=== PATIENT | female | born 1965 | race Caucasian/White ===

== ENCOUNTER 2019-06-23 08:28 | Outpatient (CLI) | payer BC, SELFPAY ==
--- NOTE | ~2019-06-23 | MM_ITS ---
EXAMINATION: MM screening [facility] w miguel a HISTORY: Screening mammogram TECHNIQUE: Craniocaudal and mediolateral oblique 3-D tomosynthesis images were obtained and synthetic 2-D images were generated. CAD analysis was submitted and interpreted. COMPARISON: Comparison to multiple prior studies sequentially, with oldest reviewed study dated 01/27. BREAST PARENCHYMAL COMPOSITION: There are scattered areas of fibroglandular density. FINDINGS: There is no evidence of suspicious mass, calcification, or architectural distortion to sugg est malignancy in either breast. There has been no suspicious interval change. IMPRESSION: 1. No mammographic evidence of malignancy. 2. Recommend routine screening mammography in one year. BI-RADS Category 1: Negative Reviewed, dictated and finalized at location A. ETING RESEARCH INTERN
== END 2019-06-23 08:29 | disposition home or self-care (01) ==
PROVIDERS: Visit Provider Student in an Organized Health Care Education/Training Program
DX: Z12.31 Encounter for screening mammogram for malignant neoplasm of breast (principal)
CPT/HCPCS: 77063; 77067

== ENCOUNTER 2019-06-30 10:47 | Outpatient (CLI) | payer BC, SELFPAY ==
--- NOTE | ~2019-06-30 | US_ITS ---
EXAMINATION: US pelvic complete w TV DATE: 06/30/2019 11:45 INDICATION: Postmenopausal bleeding Comparison:No prior studies for comparison. TECHNIQUE: Multiple transabdominal and endovaginal sonographic images of the pelvis performed. FINDINGS: The uterus measures 6.4 x 3.1 x 3.1 cm. The endometrial complex measures 9 mm. The right ovary measures 2.1 x 0.9 x 1.7 cm and the left ovary measures 1.8 x 0.7 x 1.1 cm. There ar e small follicles in each ovary. There is no free fluid in the pelvis. There are no abnormal masses seen on either side. IMPRESSION: 1. Thickened endomtrial complex. The differential diagnosis in postmenopausal female includes endomet rial hyperplasia, polyp and carcinoma. Biopsy is recommended. Reviewed, dictated and finalized at location B. TING HOUSEKEEPER IMPRESSION: 1. Thickened endomtrial complex. The differential diagnosis in postmenopausal f emale includes endometrial hyperplasia, polyp and carcinoma. Biopsy is recommended.
== END 2019-06-30 10:48 | disposition home or self-care (01) ==
PROVIDERS: Visit Provider Student in an Organized Health Care Education/Training Program
DX: N95.0 Postmenopausal bleeding (principal); R93.89 Abnormal findings on diagnostic imaging of other specified body structures
CPT/HCPCS: 76830; 76856

== ENCOUNTER 2020-07-02 10:11 | Outpatient (CLI) | payer BC, SELFPAY ==
--- NOTE | ~2020-07-02 | MM_ITS ---
EXAMINATION: MM screening [facility] BI w miguel a HISTORY: Screening mammogram TECHNIQUE: Craniocaudal and mediolateral oblique 3-D tomosynthesis images were obtained and synthetic 2-D images were generated. CAD analysis was submitted and interpreted. COMPARISON: 06/23/2019, 06/17/2018, 06/12/2017 BREAST PARENCHYMAL COMPOSITION: There are scattered areas of fibroglandular density. FINDINGS: There is no evidence of suspicious mass, calcification, or architectural distortion to sugg est malignancy in either breast. There has been no suspicious interval change. IMPRESSION: 1. No mammographic evidence of malignancy. 2. Recommend routine screening mammography in one year. BI-RADS Category 1: Negative Reviewed, dictated and finalized at location A. RESS SPRING ENCASER
== END 2020-07-02 10:12 | disposition home or self-care (01) ==
LOC: ANHIMG 10:15
PROVIDERS: PCP Student in an Organized Health Care Education/Training Program; Visit Provider Student in an Organized Health Care Education/Training Program
DX: Z12.31 Encounter for screening mammogram for malignant neoplasm of breast (principal)
CPT/HCPCS: 77063; 77067

== ENCOUNTER 2021-07-20 07:21 | Outpatient (CLI) | payer BC, OTHER, SELFPAY ==
--- NOTE | ~2021-07-20 | MM_ITS ---
EXAMINATION: MM screening [facility] BI w miguel a HISTORY: Screening mammogram TECHNIQUE: Craniocaudal and mediolateral oblique 3-D tomosynthesis images were obtained and synthetic 2-D images were generated. CAD analysis was submitted and interpreted. COMPARISON: 07/02/2020, 06/23/2019, bilateral screening mammogram examinations BREAST PARENCHYMAL COMPOSITION: There are scattered areas of fibroglandular density. FINDINGS: There is no evidence of suspicious mass, calcification, or architectural distortion to sugg est malignancy in either breast. There has been no suspicious interval change. IMPRESSION: 1. No mammographic evidence of malignancy. 2. Recommend routine screening mammography in one year. BI-RADS Category 1: Negative Reviewed, dictated and finalized at location A.
== END 2021-07-20 07:22 | disposition home or self-care (01) ==
LOC: ANHIMG 07:22
PROVIDERS: PCP Student in an Organized Health Care Education/Training Program; Visit Provider Student in an Organized Health Care Education/Training Program
DX: Z12.31 Encounter for screening mammogram for malignant neoplasm of breast (principal)
CPT/HCPCS: 77063; 77067

== ENCOUNTER → 2022-08-08 06:56 | Outpatient (CLI) | payer BC, OTHER, SELFPAY ==
--- NOTE | ~2022-08-08 | MR_ITS ---
MRI of the right knee Clinical history: Pain Technique: Coronal proton density and proton density-weighted images, sagittal proton-density and T2 fat-sat images, and axial proton-density fat-saturated images were acquired. Findings: Anterior and posterior cruciate ligaments are intact. Medial collateral ligament and the la teral collateral ligament complex are intact. Popliteus tendon is intact. There is diffuse complex tearing of the anterior horn and body of the lateral meniscus, with the ante rior horn in particular having a somewhat macerated appearance. No medial meniscal tear seen. 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 There is patchy mild chondromalacia and the patellofemoral compartment. Medial compartment articular cartilage is wel l preserved. Small tricompartmental osteophytes are present, most prominent at the lateral joint line . There is mild reactive amorphous marrow edema in the lateral tibial plateau and lateral femoral con dyle. Extensor mechanism is intact. Moderate joint effusion present. No Campbell's cyst. Impression: Extensive complex tearing of the anterior horn and body of the lateral meniscus, as detailed above. Advanced degenerative change of the lateral compartment, as detailed above. Mild degenerative change of the medial and patellofemoral compartment. Moderate joint effusion. Reviewed, dictated and finalized at location M. Impression: Extensive complex tearing of the anterior horn and body of the lateral meniscus , as detailed above. Advanced degenerative change of the lateral compartment, as detailed above. Mil d degenerative change of the medial and patellofemoral compartment. Moderate joint effusion.
== END ==
PROVIDERS: PCP Registered Nurse; Visit Provider Orthopaedic Surgery
DX: M25.561 Pain in right knee (principal); S83.271A Complex tear of lateral meniscus, current injury, right knee, initial encounter; M25.461 Effusion, right knee
CPT/HCPCS: 73721

== ENCOUNTER 2022-10-01 10:06 | Outpatient (CLI) | payer BC, OTHER, SELFPAY ==
--- NOTE | ~2022-10-01 | MM_ITS ---
EXAMINATION: MM screening [facility] BI w miguel a HISTORY: Screening TECHNIQUE: Craniocaudal and mediolateral oblique 3-D tomosynthesis images were obtained and synthetic 2-D images were generated. CAD analysis was submitted and interpreted. COMPARISON: Comparison to multiple prior studies sequentially, with oldest reviewed study dated 06/17. BREAST PARENCHYMAL COMPOSITION: There are scattered areas of fibroglandular density. FINDINGS: There is no evidence of suspicious mass, calcification, or architectural distortion to sugg est malignancy in either breast. There has been no suspicious interval change. IMPRESSION: 1. No mammographic evidence of malignancy. 2. Recommend routine screening mammography in one year. BI-RADS Category 1: Negative Reviewed, dictated and finalized at location A.
== END 2022-10-01 10:07 | disposition home or self-care (01) ==
LOC: ANHIMG 10:08
PROVIDERS: PCP Registered Nurse
DX: Z12.31 Encounter for screening mammogram for malignant neoplasm of breast (principal)
CPT/HCPCS: 77063; 77067

== ENCOUNTER 2024-09-24 02:46 | Day surgery (SDC) | payer BC, OTHER, SELFPAY ==
[2024-09-15 13:34] VITALS: BMI 40.9
--- NOTE | 2024-09-15 13:44 | PC.NURSE ---
Report to the Outpatient Waiting Room, entrance under the green pavilion located off [facility], at time _0700_ on date _[id number]_. Planned Procedure Time: _0900_.? Time changes happen often and if your time is changed the preop area will call you the afternoon before. - You and your visitor will be asked to self-screen and do not enter if you have any COVID symptoms. Please call surgeon if you need to reschedule. - A mask is optional within the hospital at this time. Patients may have clear liquids (water, carbonated beverages, clear teas, apple juice) until 3 hours prior to surgery with a maximum of 20 ounces. - No food from midnight until time of surgery and no smoking, or chewing tobacco (or any form of nicotine). No chewing gum, candy or mints. Take only the following medications with a SIP of water on the morning of surgery: ___Thyroid DO NOT STOP ANY OF YOUR OTHER PRESCRIPTION MEDICATIONS PRIOR TO SURGERY EXCEPT THE FOLLOWING Hold all vitamins and supplements for 3 days per anesthesiologist. Medications to discontinue per physician Patient already holding aspirin per dr's request. Date to take last dose Please no make-up, nail mohawk, hairspray, perfume, deodorant, or body powder the day of surgery.? No jewelry (including any body piercings) or valuables the day of surgery, leave them at home.? Please take a shower or bath the night before, or the morning of, surgery with an antibacterial soap.? Wear comfortable, loose fitting clothing.? - Jewelry must be removed prior to entering the operating room.? Rings and piercings that are not removed may be cut off. - The hospital will not accept responsibility for valuables.? - Please leave all valuables, including medications, at home the day of surgery. If you are going home after surgery, a licensed rolloff truck driver must drive you home.? - NO public transportation without another adult if you receive anesthesia. - We recommend that an adult stay with you for 24 hours following discharge. - We also recommend that you do not drive, make important decision, drink alcoholic beverages, or take any drugs that were not prescribed by your health care provider for at least 24 hours after your discharge time. Follow any additional instructions given to you from your surgeon. Telephone instructions given to __Shannana___and asked if any additional questions and then verbalized understanding. Patient advised to call surgeon office or pre surgery nurse liaison [phone] if any additional questions.
[2024-09-24] VITALS (8 sets, daily range): BP systolic 154–191; BP diastolic 81–97; PULSE 54–62; RESP 12–18; TEMP 36.2–36.6; O2SAT 98–100
--- NOTE | ~2024-09-24 | XR_ITS ---
EXAMINATION: XR surgery orthopedic DATE: 09/24/2024 10:15 INDICATION: ORIF left fifth metatarsal fracture TECHNIQUE: 2 images of the left forefoot were obtained during procedure performed by Dr. Pederson. Radiologist was not present for the imaging or procedure. The amount of fluoroscopy time used during this procedure was 0.9 minutes. Total DAP was 7.17 cGym^2. COMPARISON: None. FINDINGS: Lateral plate and screw fixation of an oblique diaphyseal fracture of the left fifth metata rsal which is in near anatomic alignment. No other fractures identified. Joint spaces appear relative ly preserved. Expected small amount of lucent soft tissue gas at the operative bed. IMPRESSION: 1. Near-anatomic alignment post open reduction internal fixation of the fifth metatarsal diaphyseal f racture. Reviewed, dictated and finalized at location A. IMPRESSION: 1. Near-anatomic alignment post open reduction internal fixation of the fifth m etatarsal diaphyseal fracture.
--- OUTSIDE RECORDS SUMMARY | 2024-09-24 03:03 | XMS_ITS | Patient Health Record ---
Author Organization [facility] [place] ([address]) Address [address] [place] [address] Care Team Providers Care Chute Worker Name Role Phone Elis Weiss Primary Care Provider UnavailLaquita Frederick Unavailable [phone] Les Dubon Unavailable [phone] [employer], Provider Unavailable Unavailab le Allergies No Known Allergies Reason For Referral No Information Medications Medication SIG (Take, Route, Frequency, Duration) Notes Start Date End Date Status MONTELUKAST 10 mg 1 tab(s) orally once a day for 90 days Not-Taking Montelukast Sodium 10 MG 1 tablet Orally at night for 90 days 03/05/2024 Active FAMOTIDINE 40 mg 1 tab(s) orally 2 times a day for 90 days Not-Taking IPRATROPIUM BROMIDE NASAL 42 mcg/inh 2 spray(s) intranasally 4 times a day, as needed for 30 days 08/29/2023 Not-Taking Famotidine 20 MG TAKE 1 TABLET BY MOUTH TWICE A DAY FOR 90 DAYS for 90 Active Zinc 50 MG 1 tab(s) orally once a day for 30 day(s) Active Ipratropium [place] 0.06 % 2 spray(s) intranasally 4 times a day, as needed for 30 days 08/29/2023 Not-Taking EPINEPHrine 0.3 MG/0.3ML as directed Injection once for 30 days Active Melatonin 10 MG 1 cap(s) orally once a day (at bedtime) Active Beulah Thyroid 30 MG 1 tab(s) orally once a day Active SIT (TRADITIONAL) variable per schedule SC per schedule for to be determined Active Vitamin D3 125 MCG (5000 UT) 1 cap(s) orally once a day Active Levothyroxine Sodium 50 MCG 1 tab(s) orally once a day Not-Taking MAGNESIUM PHOSPHATE DIBASIC TRIHYDRATE, 66527 G *Please review for potential replacement for e-prescription and drug interaction check* Active ZyrTEC Allergy 10 MG 1 tab(s) orally once a day Active EPINEPHRINE AUTO-INJECTOR 0.3 MG DIRECTED INTRAMUSCULARLY ONCE for 30 DAY(S) *Please review for potential replacement for e-prescription and drug interaction check* Active ZYRTEC 10 mg 1 tab(s) orally once a day Active Montelukast Sodium 10 MG 1 tab(s) orally once a day for 90 days Active Famotidine 40 MG TAKE 1 TABLET BY MOUTH TWICE A DAY FOR 90 DAYS for 90 Active VITAMIN D3 5000 intl units 1 cap(s) orally once a day Active ARMOUR THYROID 30 mg 1 tab(s) orally once a day Active LEVOTHYROXINE 50 mcg (0.05 mg) 1 tab(s) orally once a day Not-Taking ZINC 140 mg (as elemental zinc 50 mg) 1 tab(s) orally once a day for 30 day(s) Not-Taking VITAMIN D3 5000 intl units 1 cap(s) orally once a day Not-Taking FAMOTIDINE 40 mg 1 tab(s) orally Qday for 30 days Not-Taking HAIR, SKIN, NAILS 5 mg 1 cap(s) orally once a day Active MELATONIN 10 mg 1 cap(s) orally once a day (at bedtime) Active Immunizations Vaccine Route Administration Date Status Comme [facility] NOC Influenza-Afluria PFS Unknown 02/27/2019 Administer ed Portal Information NOC Flucelevax Quadrivalent Unknown 02/01/2020 Administered Flucelvax Unknown 04/29/2019 Administered Flucelvax Unknown 01/23/2022 Administered Social History Tobacco Use: Social History Observation Description Date Details (start date - stop date) Never Smoker NA - NA Sex Assigned At : Social History Observation Description Sex Assigned At Female Tobacco Control (Standard) Question Answer Notes Tobacco use: Nonsmoker Problems Problem Type SNOMED Code ICD Code Onset Dates Problem Status W/U Status Risk Notes Problem Chronic allergic conjunctivitis (27063563) Other chronic allergic conjunctivitis (H10.45) Active confirmed Problem Allergic rhinitis caused by pollen (disorder) (32891461) Allergic rhinitis due to pollen (J30.1) Active confirmed Problem Allergic rhinitis (73989262) Other allergic rhinitis (J30.89) Active confirmed Problem Elevated blood pressure reading without diagnosis of hypertension (735674318) Elevated blood-pressure reading, without diagnosis of hypertension (R03.0) Active confirmed Problem Cough (73064165) Cough (R05) Active confirmed Problem Allergic rhinitis caused by pollen (disorder) (87980515) Allergic rhinitis due to pollen (J30.1) Active confirmed Problem Allergic rhinitis caused by animal hair and dander (944591535855682) Allergic rhinitis due to animal (cat) (dog) hair and dander (J30.81) Active confirmed Problem Allergic rhinitis (38483751) Other allergic rhinitis (J30.89) Active confirmed Problem Chronic allergic conjunctivitis (28403555) Other chronic allergic conjunctivitis (H10.45) Active confirmed Problem Idiopathic urticaria (56060657) Idiopathic urticaria (L50.1) Active confirmed Problem Localized swelling, mass and lump, head (R22.0) Active confirmed Vital Signs Respiratory Rate 17 /min 03/05/2024 Oximetry 97 % 03/05/2024 Blood pressure diastolic 86 mm Hg 03/05/2024 Height 66 in 03/05/2024 Blood pressure systolic 153 mm Hg 03/05/2024 Weight 250 lbs 03/05/2024 BMI 40.35 kg/m2 03/05/2024 Encounters Encounter Location Date Provider Diagnosis [address] [address] 10/12/2023 Provider ZZ-Migration [facility] [address] [address] 11/07/2023 Les Dubon Allergic rhinitis du e to pollen J30.1 ; Allergic rhinitis due to animal (cat) (dog) hair and dander J30.81 ; Other allergic rhinitis J30.89 and Other chronic allergic conjunctivitis H10.45 [facility] [address] [address] 11/13/2023 Les Dubon Allergic rhinitis du e to pollen J30.1 ; Allergic rhinitis due to animal (cat) (dog) hair and dander J30.81 ; Other allergic rhinitis J30.89 and Other chronic allergic conjunctivitis H10.45 [facility] [address] [place] [address] [employer] [address] [address] 11/20/2023 Les Dubon Allergic rhinitis du e to pollen J30.1 ; Allergic rhinitis due to animal (cat) (dog) hair and dander J30.81 ; Other allergic rhinitis J30.89 and Other chronic allergic conjunctivitis H10.45 [facility] [address] [place] [address] [employer] [address] [address] 11/27/2023 Les Dubon Allergic rhinitis du e to pollen J30.1 ; Allergic rhinitis due to animal (cat) (dog) hair and dander J30.81 ; Other allergic rhinitis J30.89 and Other chronic allergic conjunctivitis H10.45 [facility] [address] [place] [address] [employer] [address] [address] 12/04/2023 Les Dubon Allergic rhinitis du e to pollen J30.1 ; Allergic rhinitis due to animal (cat) (dog) hair and dander J30.81 ; Other allergic rhinitis J30.89 and Other chronic allergic conjunctivitis H10.45 [facility] [address] [place] [address] [employer] [address] [address] 12/10/2023 Les Dubon Allergic rhinitis du e to pollen J30.1 ; Allergic rhinitis due to animal (cat) (dog) hair and dander J30.81 ; Other allergic rhinitis J30.89 and Other chronic allergic conjunctivitis H10.45 [facility] [address] [place] [address] [employer] [address] [address] 12/18/2023 Les Dubon Allergic rhinitis du e to pollen J30.1 ; Allergic rhinitis due to animal (cat) (dog) hair and dander J30.81 ; Other allergic rhinitis J30.89 and Other chronic allergic conjunctivitis H10.45 [facility] [address] [place] [address] [employer] [address] [address] 12/24/2023 Les Dubon Allergic rhinitis du e to pollen J30.1 ; Allergic rhinitis due to animal (cat) (dog) hair and dander J30.81 ; Other allergic rhinitis J30.89 and Other chronic allergic conjunctivitis H10.45 [facility] [address] [place], [place] [address] [address] 12/31/2023 Les Dubon Allergic rhinitis du e to pollen J30.1 ; Other allergic rhinitis J30.89 ; Allergic rhinitis due to animal (cat) (dog) hair and dander J30.81 and Other chronic allergic conjunctivitis H10.45 [facility] [address] [place], [place] [address] [address] [address] 01/07/2024 Les Dubon Allergic rhinitis du e to pollen J30.1 ; Other allergic rhinitis J30.89 ; Allergic rhinitis due to animal (cat) (dog) hair and dander J30.81 and Other chronic allergic conjunctivitis H10.45 [facility] [address] [place] [address] [employer] [address] [address] 01/14/2024 Les Dubon Allergic rhinitis du e to pollen J30.1 ; Other allergic rhinitis J30.89 ; Allergic rhinitis due to animal (cat) (dog) hair and dander J30.81 and Other chronic allergic conjunctivitis H10.45 [facility] [address] [place], [place] [address] [address] [address] 01/28/2024 Les Dubon Allergic rhinitis du e to pollen J30.1 ; Other allergic rhinitis J30.89 ; Allergic rhinitis due to animal (cat) (dog) hair and dander J30.81 and Other chronic allergic conjunctivitis H10.45 [facility] [address] [place] [address] [employer] [address] [address] 02/11/2024 Les Dubon Allergic rhinitis du e to pollen J30.1 ; Other allergic rhinitis J30.89 ; Allergic rhinitis due to animal (cat) (dog) hair and dander J30.81 and Other chronic allergic conjunctivitis H10.45 [facility] [address] [place], [place] [address] [address] [place] [address] 02/25/2024 Les Dubon Allergic rhinitis du e to pollen J30.1 ; Other allergic rhinitis J30.89 ; Allergic rhinitis due to animal (cat) (dog) hair and dander J30.81 and Other chronic allergic conjunctivitis H10.45 [facility] [address] [place], [place] [address] [address] [place] [address] 03/05/2024 Laquita Ramiro Allergic rhinitis du e to pollen J30.1 ; Idiopathic urticaria L50.1 ; Allergic rhinitis due to animal (cat) (dog) hair and dander J30.81 ; Other allergic rhinitis J30.89 ; Other chronic allergic conjunctivitis H10.45 ; Localized swelling, mass and lump, head R22.0 ; Cough R05 and Elevated blood-pressure reading, without diagnosis of hypertension R03.0 [facility] [address] [place] [address] [employer] [address] [address] 04/09/2024 Les Dubon Allergic rhinitis du e to pollen J30.1 ; Other allergic rhinitis J30.89 ; Allergic rhinitis due to animal (cat) (dog) hair and dander J30.81 and Other chronic allergic conjunctivitis H10.45 [facility] [address] [place] [address] [employer] [address] [address] 04/16/2024 Les Dubon Allergic rhinitis du e to pollen J30.1 ; Other allergic rhinitis J30.89 ; Allergic rhinitis due to animal (cat) (dog) hair and dander J30.81 and Other chronic allergic conjunctivitis H10.45 [facility] [address] [place] [address] [employer] [address] [address] 04/20/2024 Les Jagdish Allergic rhinitis du e to pollen J30.1 ; Other allergic rhinitis J30.89 ; Allergic rhinitis due to animal (cat) (dog) hair and dander J30.81 and Other chronic allergic conjunctivitis H10.45 [facility] [address] [place] [address] 05/19/2024 Les Dubon Allergic rhinitis du e to pollen J30.1 ; Other allergic rhinitis J30.89 ; Allergic rhinitis due to animal (cat) (dog) hair and dander J30.81 and Other chronic allergic conjunctivitis H10.45 [facility] [address] [place] [address] 06/23/2024 Les Dubon Allergic rhinitis du e to pollen J30.1 ; Other allergic rhinitis J30.89 ; Allergic rhinitis due to animal (cat) (dog) hair and dander J30.81 and Other chronic allergic conjunctivitis H10.[address] [address] 07/21/2024 Les Dubon Allergic rhinitis du e to pollen J30.1 ; Other allergic rhinitis J30.89 ; Allergic rhinitis due to animal (cat) (dog) hair and dander J30.81 and Other chronic allergic conjunctivitis H10.[address] [address] 08/18/2024 Les Dubno Allergic rhinitis du e to pollen J30.1 ; Other allergic rhinitis J30.89 ; Allergic rhinitis due to animal (cat) (dog) hair and dander J30.81 and Other chronic allergic conjunctivitis H10.[address] [address] 09/10/2024 Les Dubon Allergic rhinitis du e to pollen J30.1 ; Other allergic rhinitis J30.89 ; Allergic rhinitis due to animal (cat) (dog) hair and dander J30.81 and Other chronic allergic conjunctivitis H10.45 Assessments Encounter Date Diagnosis (ICD Code) Assessment Notes Treatment Notes Treatment Clinical Notes Section Notes 11/07/2023 Allergic rhinitis due to pollen (ICD-10 - J30.1) 11/13/2023 Allergic rhinitis due to pollen (ICD-10 - J30.1) 11/20/2023 Allergic rhinitis due to pollen (ICD-10 - J30.1) 11/27/2023 Allergic rhinitis due to pollen (ICD-10 - J30.1) 12/04/2023 Allergic rhinitis due to pollen (ICD-10 - J30.1) 12/10/2023 Allergic rhinitis due to pollen (ICD-10 - J30.1) 12/18/2023 Allergic rhinitis due to pollen (ICD-10 - J30.1) 12/24/2023 Allergic rhinitis due to pollen (ICD-10 - J30.1) 12/31/2023 Allergic rhinitis due to pollen (ICD-10 - J30.1) 12/31/2023 Other allergic rhinitis (ICD-10 - J30.89) 01/07/2024 Allergic rhinitis due to pollen (ICD-10 - J30.1) 01/07/2024 Other allergic rhinitis (ICD-10 - J30.89) 01/14/2024 Allergic rhinitis due to pollen (ICD-10 - J30.1) 01/14/2024 Other allergic rhinitis (ICD-10 - J30.89) 01/28/2024 Allergic rhinitis due to pollen (ICD-10 - J30.1) 01/28/2024 Other allergic rhinitis (ICD-10 - J30.89) 02/11/2024 Allergic rhinitis due to pollen (ICD-10 - J30.1) 02/11/2024 Other allergic rhinitis (ICD-10 - J30.89) 02/25/2024 Allergic rhinitis due to pollen (ICD-10 - J30.1) 02/25/2024 Other allergic rhinitis (ICD-10 - J30.89) 03/05/2024 Allergic rhinitis due to pollen (ICD-10 - J30.1) Michaela clearly suffers from atopic disease based upon our skin testing at a prior visit. Accordingly, we have introduced a new, aggressive medication regimen, discussed nasal washes and allergy-specific avoidance measures. Doing well on maintenance dosing. Increased symptoms with late dosing but otherwise doing well. Dosing tolerated w/o adverse reaction. AIE UTD -recently reformulation as she continues to have persistent PND - doing well! -dosing tolerated today. AIE refilled -has not had to use ipratropium nasal 03/05/2024 Idiopathic urticaria (ICD-10 - L50.1) Michaela returns doing well. -Has decreased antihistamines to Qday and continued LTRA. No interval hives! Plan to reduce Pepcid to 20 mg. Plan to hold Singulair at f/u. -Prior work-up was done to r/o mast cell, thyroid, and autoimmune diseases but all labs were normal except UA which she discussed with her WELLNESS PROGRAM ADMINISTRATOR as she has had some spotting as well. -I will have her continue the above regimen and if hives return recommend starting Xolair -Return in 6 months 04/09/2024 Allergic rhinitis due to pollen (ICD-10 - J30.1) 04/09/2024 Other allergic rhinitis (ICD-10 - J30.89) 04/16/2024 Allergic rhinitis due to pollen (ICD-10 - J30.1) 04/16/2024 Other allergic rhinitis (ICD-10 - J30.89) 04/20/2024 Allergic rhinitis due to pollen (ICD-10 - J30.1) 04/20/2024 Other allergic rhinitis (ICD-10 - J30.89) 05/19/2024 Allergic rhinitis due to pollen (ICD-10 - J30.1) 05/19/2024 Other allergic rhinitis (ICD-10 - J30.89) 06/23/2024 Allergic rhinitis due to pollen (ICD-10 - J30.1) 06/23/2024 Other allergic rhinitis (ICD-10 - J30.89) 07/21/2024 Allergic rhinitis due to pollen (ICD-10 - J30.1) 07/21/2024 Other allergic rhinitis (ICD-10 - J30.89) 08/18/2024 Allergic rhinitis due to pollen (ICD-10 - J30.1) 08/18/2024 Other allergic rhinitis (ICD-10 - J30.89) 09/10/2024 Allergic rhinitis due to pollen (ICD-10 - J30.1) 09/10/2024 Other allergic rhinitis (ICD-10 - J30.89) 09/10/2024 Allergic rhinitis due to animal (cat) (dog) hair and dander (ICD-10 - J30.81) 08/18/2024 Allergic rhinitis due to animal (cat) (dog) hair and dander (ICD-10 - J30.81) 07/21/2024 Allergic rhinitis due to animal (cat) (dog) hair and dander (ICD-10 - J30.81) 06/23/2024 Allergic rhinitis due to animal (cat) (dog) hair and dander (ICD-10 - J30.81) 05/19/2024 Allergic rhinitis due to animal (cat) (dog) hair and dander (ICD-10 - J30.81) 04/20/2024 Allergic rhinitis due to animal (cat) (dog) hair and dander (ICD-10 - J30.81) 04/16/2024 Allergic rhinitis due to animal (cat) (dog) hair and dander (ICD-10 - J30.81) 04/09/2024 Allergic rhinitis due to animal (cat) (dog) hair and dander (ICD-10 - J30.81) 03/05/2024 Allergic rhinitis due to animal (cat) (dog) hair and dander (ICD-10 - J30.81) Follow allergen avoidance, meds and continue SCIT as an adjunctive treatment to current regimen 02/25/2024 Allergic rhinitis due to animal (cat) (dog) hair and dander (ICD-10 - J30.81) 02/11/2024 Allergic rhinitis due to animal (cat) (dog) hair and dander (ICD-10 - J30.81) 01/28/2024 Allergic rhinitis due to animal (cat) (dog) hair and dander (ICD-10 - J30.81) 01/14/2024 Allergic rhinitis due to animal (cat) (dog) hair and dander (ICD-10 - J30.81) 01/07/2024 Allergic rhinitis due to animal (cat) (dog) hair and dander (ICD-10 - J30.81) 12/31/2023 Allergic rhinitis due to animal (cat) (dog) hair and dander (ICD-10 - J30.81) 12/24/2023 Allergic rhinitis due to animal (cat) (dog) hair and dander (ICD-10 - J30.81) 12/18/2023 Allergic rhinitis due to animal (cat) (dog) hair and dander (ICD-10 - J30.81) 12/10/2023 Allergic rhinitis due to animal (cat) (dog) hair and dander (ICD-10 - J30.81) 12/04/2023 Allergic rhinitis due to animal (cat) (dog) hair and dander (ICD-10 - J30.81) 11/27/2023 Allergic rhinitis due to animal (cat) (dog) hair and dander (ICD-10 - J30.81) 11/20/2023 Allergic rhinitis due to animal (cat) (dog) hair and dander (ICD-10 - J30.81) 11/13/2023 Allergic rhinitis due to animal (cat) (dog) hair and dander (ICD-10 - J30.81) 11/07/2023 Allergic rhinitis due to animal (cat) (dog) hair and dander (ICD-10 - J30.81) 11/07/2023 Other allergic rhinitis (ICD-10 - J30.89) 11/13/2023 Other allergic rhinitis (ICD-10 - J30.89) 11/20/2023 Other allergic rhinitis (ICD-10 - J30.89) 11/27/2023 Other allergic rhinitis (ICD-10 - J30.89) 12/04/2023 Other allergic rhinitis (ICD-10 - J30.89) 12/10/2023 Other allergic rhinitis (ICD-10 - J30.89) 12/18/2023 Other allergic rhinitis (ICD-10 - J30.89) 12/24/2023 Other allergic rhinitis (ICD-10 - J30.89) 12/31/2023 Other chronic allergic conjunctivitis (ICD-10 - H10.45) 01/07/2024 Other chronic allergic conjunctivitis (ICD-10 - H10.45) 01/14/2024 Other chronic allergic conjunctivitis (ICD-10 - H10.45) 01/28/2024 Other chronic allergic conjunctivitis (ICD-10 - H10.45) 02/11/2024 Other chronic allergic conjunctivitis (ICD-10 - H10.45) 02/25/2024 Other chronic allergic conjunctivitis (ICD-10 - H10.45) 03/05/2024 Other allergic rhinitis (ICD-10 - J30.89) Follow allergen avoidance, meds and continue SCIT as an adjunctive treatment to current regimen 04/16/2024 Other chronic allergic conjunctivitis (ICD-10 - H10.45) 04/20/2024 Other chronic allergic conjunctivitis (ICD-10 - H10.45) 05/19/2024 Other chronic allergic conjunctivitis (ICD-10 - H10.45) 06/23/2024 Other chronic allergic conjunctivitis (ICD-10 - H10.45) 07/21/2024 Other chronic allergic conjunctivitis (ICD-10 - H10.45) 08/18/2024 Other chronic allergic conjunctivitis (ICD-10 - H10.45) 09/10/2024 Other chronic allergic conjunctivitis (ICD-10 - H10.45) 04/09/2024 Other chronic allergic conjunctivitis (ICD-10 - H10.45) 03/05/2024 Other chronic allergic conjunctivitis (ICD-10 - H10.45) Given ocular signs and symptoms I encouraged allergy avoidance measures and meds as above. If symptoms persist, consider adding additional medications including intraocular antihistamine/mast cell stabilizer, PRN and continue SCIT as an adjunctive measure 12/24/2023 Other chronic allergic conjunctivitis (ICD-10 - H10.45) 12/18/2023 Other chronic allergic conjunctivitis (ICD-10 - H10.45) 12/04/2023 Other chronic allergic conjunctivitis (ICD-10 - H10.45) 12/10/2023 Other chronic allergic conjunctivitis (ICD-10 - H10.45) 11/27/2023 Other chronic allergic conjunctivitis (ICD-10 - H10.45) 11/20/2023 Other chronic allergic conjunctivitis (ICD-10 - H10.45) 11/07/2023 Other chronic allergic conjunctivitis (ICD-10 - H10.45) 11/13/2023 Other chronic allergic conjunctivitis (ICD-10 - H10.45) 03/05/2024 Localized swelling, mass and lump, head (ICD-10 - R22.0) Given the idiosyncratic nature of swelling recommend she continue to carry AIE at all times 03/05/2024 Cough (ICD-10 - R05) No interval cough,. Spirometry last visit suggestive of restriction but TLC not measured. Last visit there was a 7% change in FEV1 and improved flow throughout but no subjective change in cough by the patient. In April 2022 was given albuterol and Trelegy after having a ongoing cough for weeks. Resolved with meds. May have RAD. Also complicated by GERD, with symptoms worse after eating. There are some symptoms that suggest she has VCD or a neurogenic component, with coughing with laughing/emotion/t alking. Seen by Dr. Rodriguez who agrees with VCD and allergy. Continue immunotherapy in order to better control AR symptoms. Recommend checking spirometry if symptoms return - none for the last year 03/05/2024 Elevated blood-pressure reading, without diagnosis of hypertension (ICD-10 - R03.0) Elevated blood pressure without signs of urgency or emergency. Keep f/u with PMD and Cardiology 11/07/2023 Other 11/13/2023 Other 11/20/2023 Other 11/27/2023 Other 12/04/2023 Other 12/10/2023 Other 12/18/2023 Other 12/24/2023 Other 03/05/2024 Other Plan Of Treatment No Information Insurance Providers Payer Name Payer Address Payer Phone Subscriber Number Group Number Insured Name Patient Relationship to Insured Coverage Start Date Coverage End Date [facility] [place] [facility] [address] [place] [address] [id number] Michaela Wilcox Self - patient is the insured [facility] [address] [place] [address] [phone] [id number] pearl amos Spouse - patient is the spouse of the insured Medical (General) History Medical History History ICD Code Idiopathic urticaria L50.1 Localized swelling, mass and lump, head R22.0 Allergic rhinitis due to pollen J30.1 Allergic rhinitis due to animal (cat) (d og) hair and dander J30.81 Other allergic rhinitis J30.89 Other chronic allergic conjunctivitis H1 0.45 Cough R05 Surgical History Surgery Date(Month/Year) Bunionectomy Cyst removal Knee Surgery 08/2022 colonoscopy 03/04/2024
--- OUTSIDE RECORDS SUMMARY | 2024-09-24 03:03 | XMS_ITS | Clinical Summary ---
Author Organization [facility] Address [address] [address] Care Team Providers Care Ep Specialist Name Role Phone Yoselin Brumfield MD Primar y Care Provider Allergies No known active allergies Medications famotidine (PEPCID) 20 mg tablet Take 20 mg by mouth 2 (two) times a day 05/26/2019 Active montelukast (SINGULAIR) 10 mg tablet 05/26/2019 Active [place] Thyroid 30 mg tablet 05/26/2019 Active Active Problems Problem Noted Date Diagnosed Date Cough 07/14/2019 Assessment & Plan (07/14/2019 11:24 AM CDT): The patient's cough is likely multifactorial. There is certainly mucus stranding in the endo larynx and immediately within the infra glottis that fits with her picture of allergic rhinitis. Her campus aide can continue to work on treatment for this. I would expect that that will improve some of the productive portion of her cough. Additionally, the dry, nonproductive portion of her cough that seems to be related to smells and talking is more likely related to paradoxical vocal fold motion. Paradoxical vocal fold motion disorder 0 Assessment & Plan (07/14/2019 11:25 AM CDT): I have recommended laryngeal control therapy here at the [facility] in order to control the patient's symptoms. The patient's diagnosis was discussed in detail along with how therapy can improve it. Surgical History Surgery Date Site/Laterality Comments LASER ABLATION OF THE CERVIX 04/29/1991 - 04/28/1992 BUNIONECTOMY 04/29/1996 - 04/28/1997 CYST REMOVAL LASIK 04/29/1998 - 04/28/1999 Medical History Medical History Date Comments Thyroid disease Environmental and seasonal allergies Family History Medical History Relation Name Comments Cancer Father Cancer Father's Sister Relation Name Status Comments Father Father's Sister Social History Tobacco Use Types Packs/Day Years Used Date Smoking Tobacco: Never Smokeless Tobacco: Never Alcohol Use Standard Drinks/Week Comments Yes 0 (1 standard drink = 0.6 oz pur e alcohol) Personal Safety Answer Date Recorded Getting School Help Needed Not on file 07/13 Comments Unknown Sex and Gender Information Value Date Recorded Sex Assigned at Not on file Legal Sex Female 6:37 PM DISC 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 Gender Identity Not on file Sexual Orientation Not on file Obstetrics History Last Filed Vital Signs Vital Sign Reading Time Taken Comments Blood Pressure 166/78 07/14/2019 10:25 AM CDT Pulse 62 07/14/2019 10:25 AM CDT Temperature - - Respiratory Rate - - Oxygen Saturation - - Inhaled Oxygen Concentration - - Weight 122.9 kg (271 lb) 07/14/2019 10:25 AM CDT Height - - Body Mass Index - - Plan of Treatment Not on file Insurance [facility] Care Teams Ep Specialist Relationship Specialty Start Date End Date Yoselin Brumfield, MD [address] [place] [address] [place], [place] [phone] PCP - General Family Medicine 06/23/19
--- OUTSIDE RECORDS SUMMARY | 2024-09-24 03:03 | XMS_ITS | Referral Summary ---
Author Organization [facility] Address [address] [address] Care Team Providers Care Vice President Research Name Role Phone Yoselin Brumfield MD Primar y Care Provider Allergies No known active allergies Medications famotidine (PEPCID) 20 mg tablet Take 20 mg by mouth 2 (two) times a day 05/26/2019 Active montelukast (SINGULAIR) 10 mg tablet 05/26/2019 Active [place] Thyroid 30 mg tablet 05/26/2019 Active Active Problems Problem Noted Date Diagnosed Date Cough 07/14/2019 Assessment & Plan (07/14/2019 11:24 AM CDT): The patient's cough is likely multifactorial. There is certainly mucus stranding in the endo larynx and immediately within the infra glottis that fits with her picture of allergic rhinitis. Her talent agent can continue to work on treatment for [...] recommended laryngeal control therapy here at the [facility] in order to control the patient's symptoms. The patient's diagnosis was discussed in detail along with how therapy can improve it. 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 Gender Identity Not on file Sexual Orientation Not on file Last Filed Vital Signs Vital Sign Reading Time Taken Comments Blood Pressure 166/78 07/14/2019 10:25 AM CDT Pulse 62 07/14/2019 10:25 AM CDT Temperature - - Respiratory Rate - - Oxygen Saturation - - Inhaled Oxygen Concentration - - Weight 122.9 kg (271 lb) 07/14/2019 10:25 AM CDT Height - - Body Mass Index - - Plan of Treatment Not on file Insurance [facility] Care Teams Vice President Research Relationship Specialty Start Date End Date Yoselin Brumfield MD [address] [place] [address] [place] [id number] PCP - General Family Medicine 06/23/19
[2024-09-24] MEDS: LACTATED RINGERS 1,000 ML 30 ML IV CONT ×2 (07:00→10:23)
--- NOTE | 2024-09-24 08:18 | P.PNAN_ITS ---
Anes - Initial Pre Proc Eval Procedure: Operation Date: 09/24/24 09:00 Proposed Procedures p Open Reduction Internal Fixation of Left Fifth Metatarsal Fracture - Shey Pederson DPM Date/Time: 09/24/24 08:18 Surgeon: Shey Pederson DPM Pre Op Diagnosis: displace fracture of left foot metatarsal bone Patient Data Age: 59 Gender: F Height: 1.68 m Weight: 115.4 kg Last Vital Signs Temp 97.8 F 09/24/24 06:53 Pulse 59 L 09/24/24 06:53 Resp 16 09/24/24 06:53 BP 167/86 H 09/24/24 06:53 Pulse Ox 99 09/24/24 06:53 O2 Del Method Room Air 09/24/24 06:53 Allergies Allergy/AdvReac Type Severity Reaction Status Date / Time No Known Allergies Allergy Mild Verified 09/24/24 07:09 Home Medications ?Medication ?Instructions ?Recorded ?Confirmed ?Type cetirizine 10 mg capsule (Zyrtec) 10 mg PO DAILY 06/25/19 09/24/24 History cholecalciferol (vitamin D3) 125 125 mcg PO DAILY 06/25/19 09/24/24 History mcg (5,000 unit) capsule melatonin 5 mg capsule 5 mg PO PRN 06/25/19 09/24/24 History magnesium 200 mg tablet 200 mg PO DAILY 06/30/20 09/24/24 History aspirin 81 mg capsule 81 mg PO DAILY 07/04/21 09/24/24 History montelukast 10 mg tablet 10 mg PO DAILY 07/04/21 09/24/24 History (Singulair) epinephrine 0.3 mg/0.3 mL 0.3 mg IM ONCE 02/06/23 09/15/24 History injection, auto-injector lactobacillus combination no.9 4 4,000 mmu cells PO DAILY 02/06/23 09/24/24 Hi story billion cell capsule (Adult 50 Plus Probiotic) famotidine 20 mg tablet 20 mg PO DAILY 09/15/24 09/24/24 History thyroid (pork) 30 mg tablet 30 mg PO DAILY 09/15/24 09/24/24 History zinc glycinate 30 mg capsule 30 mg PO DAILY 09/15/24 09/24/24 History Patient hx anesthesia problems: none Family hx anesthesia problems: none Results Review: All pre-operative results and documents have been reviewed as part of the pre- operative evaluation. [facility] Past Medical History Medical History Colon cancer screening AMBROSIO on CPAP Sleep apnea in adult History of heart attack 07/2020 Autoimmune disorder Pilonidal cyst Hypothyroid Surgical History Surgical History S/P cryotherapy of skin lesion Cryotherapy to cervix 1992 History of surgical removal of pilonidal cyst History of bunionectomy [place] teeth removed Family History Family History Father Diabetes mellitus Patient's father is , Onset Age: 83 Heart disease Mother Hypertension, Onset Age: 60 Heart disease Sibling Hypertension, Onset Age: 40 Social History Social History Smoking status: Never smoker Second hand tobacco smoke exposure: No Alcohol intake: current Alcohol use details: one drink a month Substance use: never Substance use type: does not use Lack of Transportation: No Lack of Food: Never True Current Housing: I Have Housing Concerned About Future Housing: No Difficulty Paying Gas/Electric Bills: No Difficulty Paying for Meds: No Currently Unemployed: No Education: High School Diploma/GED Difficulty w/ Childcare or Family Care: No Living arrangements: with family Spiritual care concerns: No Anes - Eval Final PreProcedure Day of Procedure 09/24/24 08:18 Patient weight: morbidly obese Lungs: normal air movement Airway: Mallampati scale class II Neurological: alert and oriented Last oral intake: >/= 8 hours ASA classification: III Emergent: no Anesthetic plan: proceed Anesthesia type and monitoring: general LMA and standard monitoring Results Review: All pre-operative results and documents have been reviewed as part of the pre- operative evaluation. BMI 41, AMBROSIO on CPAP, hypothyroidism. Pt had remote hx [place] 2021, cardiac cath reported nml, pt saw cardiology this month and cleared for surgery based on EKG. Informed Consent: The patient's anesthetic plan and its attendant risks and benefits were discussed with the patient/family/POA. Questions were solicited and answers provided to the satisfaction of the patient/family/POA.
--- NOTE | 2024-09-24 08:46 | P.HP_ITS ---
History of Present Illness History of Present Illness Consent: Risks, benefits, and alternatives have been discussed and questions answered. Patient agrees to proceed with procedure. Chief complaint: displace fracture of left foot metatarsal bone Narrative: Michaela Wilcox is a 59 year old female with left foot displaced 5th metatarsal fracture sustained about 4 weeks ago. Review of Systems Review of Systems: All systems reviewed & are unremarkable except as noted in HPI and below Musculoskeletal: Comments: Pain to left foot 5th metatarsal PMFSH Past Medical History Medical History Colon cancer screening AMBROSIO on CPAP Sleep apnea in adult History of heart attack 07/2020 Autoimmune disorder Pilonidal cyst Hypothyroid Surgical History Surgical History S/P cryotherapy of skin lesion Cryotherapy to cervix 1992 History of surgical removal of pilonidal cyst History of bunionectomy [place] teeth removed Family History Family History Father Diabetes mellitus Patient's father is , Onset Age: 83 Heart disease Mother Hypertension, Onset Age: 60 Heart disease Sibling Hypertension, Onset Age: 40 Social History Social History Smoking status: Never smoker Second hand tobacco smoke exposure: No Alcohol intake: current Alcohol use details: one drink a month Substance use: never Substance use type: does not use Lack of Transportation: No Lack of Food: Never True Current Housing: I Have Housing Concerned About Future Housing: No Difficulty Paying Gas/Electric Bills: No Difficulty Paying for Meds: No Currently Unemployed: No Education: High School Diploma/GED Difficulty w/ Childcare or Family Care: No Living arrangements: with family Spiritual care concerns: No Meds Home Medications and Allergies Home Medications ?Medication ?Instructions ?Recorded ?Confirmed ?Type cetirizine 10 mg capsule (Zyrtec) 10 mg PO DAILY 06/25/19 09/24/24 History cholecalciferol (vitamin D3) 125 125 mcg PO DAILY 06/25/19 09/24/24 History mcg (5,000 unit) capsule melatonin 5 mg capsule 5 mg PO PRN 06/25/19 09/24/24 History magnesium 200 mg tablet 200 mg PO DAILY 06/30/20 09/24/24 History aspirin 81 mg capsule 81 mg PO DAILY 07/04/21 09/24/24 History montelukast 10 mg tablet 10 mg PO DAILY 07/04/21 09/24/24 History (Singulair) epinephrine 0.3 mg/0.3 mL 0.3 mg IM ONCE 02/06/23 09/15/24 History injection, auto-injector lactobacillus combination no.9 4 4,000 mmu cells PO DAILY 02/06/23 09/24/24 History billion cell capsule (Adult 50 Plus Probiotic) famotidine 20 mg tablet 20 mg PO DAILY 09/15/24 09/24/24 History thyroid (pork) 30 mg tablet 30 mg PO DAILY 09/15/24 09/24/24 History zinc glycinate 30 mg capsule 30 mg PO DAILY 09/15/24 09/24/24 History Allergies Allergy/AdvReac Type Severity Reaction Status Date / Time No Known Allergies Allergy Mild Verified 09/24/24 07:09 Vital Signs Vital Signs - 24 hr 09/24/24 06:53 Temperature 36.6 C Pulse Rate 59 L Respiratory Rate 16 Blood Pressure 167/86 H Pulse Oximetry 99 Oxygen Delivery Room Air Exam Const: General: healthy appearing, comfortable and no acute distress Extrem: General: capillary refill normal Right lower extremity: normal capillary refill Left lower extremity: normal capillary refill Other: Pain on palpation to left 5th metatarsal and painful eversion/inversion range of motion. Msucle strength 5/5 to all tendons crossing ankle joint. Assessment and Plan Assessment and plan (1) Fracture of fifth metatarsal bone: Code(s): S92.353A - Displaced fracture of fifth metatarsal bone, unspecified foot, initial encounter for closed fracture Status: Acute Plan Patient has been consented for ORIF of left 5th metatarsal fracture Patient will be given prescription for post-operative antibiotic and pain medication through my office EMR Patient will be placed in posterior splint,non weight bearing to left lower extremity with knee scooter Follow up in office in 1 week
--- NOTE | 2024-09-24 08:50 | WPDHPUPDATE1 ---
History and Physical Update Update Date/Time: 09/24/24 08:50 History and Physical has been reviewed, including an updated exam of the patient. There are NO changes in the patient's condition. Risks, benefits, and alternatives have been discussed and questions answered. Patient agrees to proceed with procedure.
[2024-09-24] MEDS: ceFAZolin 2 GM/D5W 50 ML 2 GM/50 ML BAG IVPB (08:57)
[2024-09-24] MEDS: BUPivacaine HCL 0.5% 10 ML AMP 5 ML INFILTRATE ×2 (09:19)
--- NOTE | 2024-09-24 10:30 | P.OP_ITS ---
Procedure Note - Detailed Date of Procedure 09/24/24 Pre-op Diagnosis displaced fracture of left foot 5th metatarsal bone Post-op Diagnosis Same Procedure Performed Open reduction internal fixation of displaced left 5th metatarsal fracture Surgeon Shey Pederson DPM Anesthesia General and Local Indications Patient is a 59 year old female with the above diagnoses who requires surgical fixation of the displaced fracture for proper healing. The patient has been explained the risks, benefits, alternatives, complications of the surgical procedure. Patient verbalizes understanding. Correct site marked and NPO status confirmed prior to procedure. Findings The patient was brought to the operating room and placed on the operating room table in supine position.? The patient received a total of 10 mL of a 1:1 mix 1.0% Lidocaine plain & 0.5% Marcaine plain in local block fashion to the left foot.? Once local anesthesia was achieved, the left foot was then prepped and draped in usual sterile manner and procedure began. A well padded left ankle to urniquet was used and set to 250 mmHg for the procedure. Description of Procedure Attention was directed to the lateral left foot where under fluorscopy a spiral oblique displaced fracture of the 5th metatarsal was located. An iincision was made overlying the fracture with a #15 blade. Using a hemostat, deep dissection was performed with care not to violate any neurovascular structures. All bleeders were cauterized and ligated as necessary. The fracture was identified and partial bony callus had started to form. The callus was broken up with an osteotome and dental pick. The fracture borders were fenestrated using the osteotome. The fracture hematoma was irrigated using normal saline. Next, using a bone clamp, the fracture was reduced and checked under fluorscopy with anatomic reduction restored. Next a temporary K-wire was used to temporarily fixate the fracture. Next, a 6 hole Arthrex T plate was placed on the dorsal lateral aspect of the 5th metatarsal shaft. The plate was temporarily secured and proper anatomic placement was confirmed under fluroscopy. The plate was filled with varying locking & nonlocking screws with excellent compression of the plate noted. Final intra-operative x-rays were taken ensuring anatomic reduction & proper hardware placement. The surgical site was irrigated with normal saline. The subcutaneous tissue was re-approximated using 4-0 Monocryl. The skin was reapproximated using 4-0 Nylon. A local anesthetic block of 1:1 mix of 1% Lidocaine plain & 0.5% Marcaine plain was given to the left foot of 10 cc total. The left ankle tourniquet was released with immediate vascular return noted to the digits. Post-operative dressings included adaptic, 4x4 gauze, kerlix, and a well padded posterior splint. Post-Operative Condition:? The patient tolerated the anesthesia and procedure and proceeded to the recovery room with vital signs stable and neurovascular s tatus intact to the left foot. The patient will follow up with me in office on an outpatient basis in 1 week. Implants Arthrex 6 hole T plate 2.4 x 16 mm screws x2 2.4 x 14 mm screws x 2 2.4 x 12 mm screw 2.4 x 14 mm locking screw x2 Estimated Blood Loss 5 Condition Stable Disposition Same day
[2024-09-24] MEDS: fentaNYL CITRATE INJ (*CRX) 100 MCG/2 ML VIAL 25 MCG IV PUSH ×4 (10:35→10:53)
[2024-09-24] MEDS: diphenhydrAMINE HCl INJ 50 MG/ML VIAL 12.5 MG IV PUSH (11:40)
[2024-09-24] MEDS: oxyCODONE HCL (*CRX) 5 MG TAB IR PO (11:40)
== END 2024-09-24 12:36 | disposition home or self-care (01) ==
PROVIDERS: PCP Registered Nurse; Visit Provider Podiatrist Foot & Ankle Surgery
PROC: (CPT 28485; principal; 2024-09-24 09:00)
DX: S92.352A Displaced fracture of fifth metatarsal bone, left foot, initial encounter for closed fracture (principal); E03.9 Hypothyroidism, unspecified; G47.33 Obstructive sleep apnea (adult) (pediatric); I25.2 Old myocardial infarction; D89.89 Other specified disorders involving the immune mechanism, not elsewhere classified; X58.XXXA Exposure to other specified factors, initial encounter; E66.01 Morbid (severe) obesity due to excess calories; Z68.41 Body mass index [BMI] 40.0-44.9, adult; Z79.82 Long term (current) use of aspirin; Z99.89 Dependence on other enabling machines and devices; Z98.890 Other specified postprocedural states; Z82.49 Family history of ischemic heart disease and other diseases of the circulatory system
CPT/HCPCS: 28485; 99199; A9270; C1769; J0690; J1100; J1200; J2003; J2405; J2704; J3010; J7120